=== PATIENT | male | born 1945 | race Caucasian/White ===

== ENCOUNTER 2018-03-02 19:20 | Inpatient (IN) | payer MEDICARE, BC ==
[2018-03-02] MEDS ORDERED: NITROGLYCERIN SL TABS 0.4 MG TAB SUBLINGUAL STA (19:44)
[2018-03-02] MEDS ORDERED: ASPIRIN 81 MG PO STA (19:44)
[2018-03-02] MEDS ORDERED: IPRATROPIUM-ALBUTEROL 3 ML NEB INHALATION STA ×2 (19:44→22:40)
--- NOTE | 2018-03-02 19:56 | ED ---
Chest Pain HPI - General Chief Complaint: Chest Pain Stated Complaint: SOB Time Seen by Provider: 03/02/18 19:37 Source: patient, RN notes reviewed Mode of arrival: wheelchair Limitations: physical limitation - History of Present Illness Initial Comments: This is a 72-year-old male was a smoker but no history of heart or lung disease who states she's been having shortness of breath or past 3 days with cough with yellow phlegm some chills also some retrosternal chest tightness and pressure he states is moderate in severity. He has exertional dyspnea. No other symptoms or findings reported. MD Complaint: chest pain, other - Related Data Home Medications Medication Instructions Recorded Confirmed No Known Home Medications [No 03/02/18 03/02/18 Known Home Medications] Allergies Allergy/AdvReac Type Severity Reaction Status Date / Time No Known Allergies Allergy Verified 03/02/18 19:43 Review of Systems ROS Statement: Those systems with pertinent positive or pertinent negative responses have been documented in the HPI. ROS Other: All systems not noted in ROS Statement are negative. EKG Findings - EKG Results: EKG: interpreted by TASHI, sinus rhythm (Sinus tachycardia rate 12. Interval 170 QRS duration 78 daily since QTC 324/422 possible left atrial enlargement) Past Medical History Past Medical History: No Reported History History of Any Multi-Drug Resistant Organisms: None Reported Additional Past Surgical History / Comment(s): buttock Past Psychological History: No Psychological Hx Reported Smoking Status: Current every day smoker Past Alcohol Use History: None Reported Past Drug Use History: None Reported General Exam - General Exam Comments Initial Comments: This is a well-developed well-nourished awake alert oriented 3 male Limitations: physical limitation General appearance: alert, anxious Head exam: Present: atraumatic, normocephalic, normal inspection Eye exam: Present: normal appearance, PERRL, EOMI. Absent: scleral icterus, conjunctival injection, periorbital swelling ENT exam: Present: normal exam, mucous membranes moist Neck exam: Present: normal inspection. Absent: tenderness, meningismus, lymphadenopathy Respiratory exam: Present: wheezes, decreased breath sounds. Absent: respiratory distress, rales, rhonchi, stridor Cardiovascular Exam: Present: regular rate, normal rhythm, normal heart sounds. Absent: systolic murmur, diastolic murmur, rubs, gallop, clicks GI/Abdominal exam: Present: soft, normal bowel sounds. Absent: distended, tenderness, guarding, rebound, rigid Extremities exam: Present: normal inspection, full ROM, normal capillary refill. Absent: tenderness, pedal edema, joint swelling, calf tenderness Back exam: Present: normal inspection Neurological exam: Present: alert, oriented X3, CN II-XII intact Psychiatric exam: Present: normal affect, normal mood Skin exam: Present: warm, dry, intact. Absent: rash Course Vital Signs 03/02/18 03/02/18 03/02/18 19:21 19:41 20:18 Temperature 99.0 F Pulse Rate 109 H 103 H Pulse Rate [ 99 [employer]der ] Respiratory 24 21 18 Rate Blood Pressure 165/72 160/91 O2 Sat by Pulse 92 L 94 L Oximetry 03/02/18 03/02/18 03/02/18 20:21 20:28 21:15 Temperature Pulse Rate 101 H 102 H 98 Pulse Rate [ Go[employer]der ] Respiratory 18 Rate Blood Pressure 142/71 O2 Sat by Pulse 95 Oximetry 03/02/18 03/02/18 03/02/18 22:34 22:57 23:07 Temperature Pulse Rate 84 96 90 Pulse Rate [ Go[employer] Herder ] Respiratory 17 18 18 Rate Blood Pressure 125/68 O2 Sat by Pulse 93 L Oximetry - Reevaluation(s) Reevaluation #1: 03/02/18 23:32 Patient was still wheezing somewhat he did require second updraft treatment. He still having some retrosternal chest discomfort. Chest Pain MDM - MDM I did review the imaging and report no acute findings. Patient will be admitted I did initially discuss case with Dr. Martinez however his group is not on city call I later talked to Dr. Marquez who is agreed to accept the patient. The patient's temperature is likely based on smoking prior to arrival. Critical Care Time Critical Care Time: Yes Critical Care Time: 31 minutes of critical care time which includes initial presentation with history physical labs x-rays. Several reevaluation patient responsive therapy. Discussion with the admitting physician admission orders and documentation the above. Patient does not have any prior EKGs are available at this time. Disposition Clinical Impression: Chest pain, Unstable angina pectoris, COPD with exacerbation Disposition: ADMITTED IP TO THIS [facility] Condition: Stable Referrals: None,Stated [Primary Care Provider] - 1-2 days
[2018-03-02 19:57] LABS: Basophils % (A) 1 %; Eosinophils # (A) 0.2 k/uL (0-0.7); Eosinophils % (A) 2 %; HCT 50.6 % (39.0-53.0); HGB 17.2 gm/dL (13.0-17.5); Lymphocytes # (A) 0.8 k/uL (1.0-4.8); Lymphocytes % (A) 10 %; MCH 31.1 pg (25.0-35.0); MCV 91.5 fL (80.0-100.0); Mean Platelet Volume 7.7; Monocytes # (A) 0.7 k/uL (0-1.0); Monocytes % (A) 9 %; Neutrophils # (A) 5.9 k/uL (1.3-7.7); Neutrophils % (A) 77 %; Platelet Count 177 k/uL (150-450); RBC 5.53 m/uL (4.30-5.90); RDW 13.9 % (11.5-15.5); WBC 7.7 k/uL (3.8-10.6)
[2018-03-02 20:05] LABS: INR 1.2 (<1.2); Partial Thromboplastin Time 22.8 sec (22.0-30.0); Prothrombin Time 11.2 sec (9.0-12.0)
[2018-03-02 20:10] LABS: ALT 26 U/L (21-72); AST 29 U/L (17-59); Albumin 4.7 g/dL (3.5-5.0); Alkaline Phosphatase 106 U/L (38-126); Anion Gap 17 mmol/L; Blood Urea Nitrogen 14 mg/dL (9-20); Calcium 9.7 mg/dL (8.4-10.2); Carbon Dioxide 27 mmol/L (22-30); Chloride 98 mmol/L (98-107); Glucose 116 mg/dL (74-99); Magnesium 1.9 mg/dL (1.6-2.3); Potassium 4.2 mmol/L (3.5-5.1); Sodium 142 mmol/L (137-145); Total Bilirubin 1.8 mg/dL (0.2-1.3); Total Protein 7.9 g/dL (6.3-8.2)
--- NOTE | 2018-03-02 20:46 | XR ---
EXAMINATION TYPE: XR chest 2V DATE OF EXAM: 03/02/2018 COMPARISON: NONE HISTORY: Short of breath and chest pain TECHNIQUE: Frontal and lateral views of the chest are obtained. FINDINGS: There is slight coarsening of interstitial pulmonary markings. There is slight blunting of right costophrenic angle. There is no heart failure. Heart size is normal. There is spurring in the thoracic spine. IMPRESSION: Mild pleural reaction or fluid at the right lung base. No heart failure. Mild pulmonary fibrosis.
[2018-03-02 20:51] LABS: Creatine Kinase 136 U/L (55-170)
[2018-03-02 21:04] LABS: Creatine Kinase MB 2.7 ng/mL (0.0-2.4); Troponin I <0.012 ng/mL (0.000-0.034)
[2018-03-02] MEDS ORDERED: HEPARIN SODIUM,PORCINE 5,000 UNIT/ML 1 ML VIAL IV ONE (23:35)
[2018-03-02] MEDS ORDERED: NITROGLYCERIN SL TABS 0.4 MG TAB SUBLINGUAL PRN (23:35)
[2018-03-02] MEDS ORDERED: methylPREDNISolone SOD SUCCI 125 MG/2 ML VIAL IV STA (23:38)
[2018-03-02] MEDS ORDERED: HEPARIN SODIUM,PORCINE/D5W PMX 25,000 UNIT in DEXTROSE/WATER 1 500ML.BAG IV SCH (23:45)
[2018-03-02] MEDS: SODIUM CHLORIDE 0.9% 1,000 ML IV SCH (23:58)
[2018-03-03] MEDS ORDERED: AZITHROMYCIN 500 MG TAB PO STA (00:05)
--- NOTE | 2018-03-03 00:17 | P.HPIM ---
History of Present Illness H&P Date: 03/03/18 Chief Complaint: Shortness of breath and cough chest pain The patient is a 72-year-old male with no significant past medical history other than for smoking who presents to the ER with chief complaint of shortness of breath and chest discomfort. Apparently the patient began having increasing shortness of breath worse with exertion over the last 3 days, with increasing trouble breathing, the patient describes it as feeling like he is being " waterboarded", also reports reductive cough of yellowish sputum during this time along with some associated chest pressure rated as a 7 out of 10 nonradiating midsternal feeling like someone is sitting on his chest. Patient also reports increasing lower extremity swelling, he denies any PND orthopnea, denies lightheadedness, but does report a headache and increasing head congestion. He denies any subjective fevers or chills. In the ER he was given breathing treatments, IV steroids and recommended for admission. Review of Systems All other 14 point systems negative except for HPI Past Medical History Past Medical History: No Reported History History of Any Multi-Drug Resistant Organisms: None Reported Additional Past Surgical History / Comment(s): buttock Past Psychological History: No Psychological Hx Reported Smoking Status: Current every day smoker Past Alcohol Use History: None Reported Past Drug Use History: None Reported Medications and Allergies Home Medications Medication Instructions Recorded Confirmed Type No Known Home Medications [No 03/02/18 03/02/18 History Known Home Medications] Allergies Allergy/AdvReac Type Severity Reaction Status Date / Time No Known Allergies Allergy Verified 03/02/18 19:43 Physical Exam Vitals: Vital Signs Temp Pulse Pulse Resp BP Pulse Ox 03/02/18 23:22 76 18 136/61 98 03/02/18 23:07 90 18 03/02/18 22:57 96 18 03/02/18 22:34 84 17 125/68 93 L 03/02/18 21:15 98 18 142/71 95 03/02/18 20:28 102 H 03/02/18 20:21 101 H 03/02/18 20:18 103 H 18 160/91 94 L 03/02/18 19:41 99 21 03/02/18 19:21 99.0 F 109 H 24 165/72 92 L Intake and Output 03/02/18 03/02/18 03/03/18 14:59 22:59 06:59 Other: Weight 86.183 kg Constitutional: Mild to moderate respiratory distress, conversant Eyes: Anicteric sclerae, moist conjunctiva, no lid-lag, PERRLA ENMT: NC/AT,Oropharynx clear, no erythema, exudates Neck:Supple, FROM, no masses, or JVD, No carotid bruits; No thyromegaly Lungs: Diffuse wheezes, Clear to percussion, pursed lip breathing, no accessory muscle use but speaking in incomplete sentences Cardiovascular: Heart regular in rate and rhythm, No murmurs, gallops, or rubs no peripheral edema Abdominal: Soft Nontender, nom distended, no guarding, no rebound or rigidity, Normoactive bowel sounds No hepatomegaly, No splenomegaly, No palpable mass No abdominal wall hernia noted Skin: Normal temperature, tone, texture, turgor, No induration No subcutaneous nodules, No rash, lesions, No ulcers Extremities:No digital cyanosis No clubbing, Pedal pulses intact and symmetrical Radial pulses intact and symmetrical Normal gait and station, No calf tenderness Psychiatric: Alert and oriented to person, place and time, Appropriate affect Intact judgement Neuro: Muscles Strength 5/5 in all 4 extremities, Sensation to light touch grossly present throughout, Cranial nerves II-XII grossly intact. No focal sensory deficits Results CBC & Chem 7: 03/02/18 19:35 03/02/18 19:35 Labs: Abnormal Lab Results - Last 24 Hours (Table) 03/02/18 03/02/18 03/02/18 Range/Units 19:35 19:35 19:35 Lymphocytes # 0.8 L (1.0-4.8) k/uL INR (<1.2) Glucose 116 H (74-99) mg/dL Total Bilirubin 1.8 H (0.2-1.3) mg/dL CK-MB (CK-2) 2.7 H* (0.0-2.4) ng/mL 03/02/18 Range/Units 19:35 Lymphocytes # (1.0-4.8) k/uL INR 1.2 H (<1.2) Glucose (74-99) mg/dL Total Bilirubin (0.2-1.3) mg/dL CK-MB (CK-2) (0.0-2.4) ng/mL Assessment and Plan (1) COPD with exacerbation Current Visit: Yes Status: Acute Code(s): J44.1 - CHRONIC OBSTRUCTIVE PULMONARY DISEASE W (ACUTE) EXACERBATION SNOMED Code(s): 420762480 (2) Chest pain Current Visit: Yes Status: Acute Code(s): R07.9 - CHEST PAIN, UNSPECIFIED SNOMED Code(s): 63092360 (3) Smoking Current Visit: Yes Status: Acute Code(s): F17.200 - NICOTINE DEPENDENCE, UNSPECIFIED, UNCOMPLICATED SNOMED Code(s): 57393679 Plan: The patient is admitted with acute COPD exacerbation anticipate a greater than 2 midnight stay, also present today with atypical chest pain possibly precipitated by his COPD exacerbation we'll need to cycle his troponins to rule out ACS his initial EKG was negative for any sedation acute ischemia. The patient was started on routine chest pain orders with aspirin and nitroglycerin and placed on heparin drip. For his COPD exacerbation is continued on IV steroids Solu-Medrol, Perforomist, scheduled and when necessary breathing treatments, azithromycin and Mucinex. We'll order echocardiogram, TSH and consult cardiology and pulmonology respectively for further recommendations. We 'll continue to follow the patient's clinical course
[2018-03-03] MEDS ORDERED: ACETAMINOPHEN TAB 325 MG TAB PO PRN (00:18)
[2018-03-03] MEDS: IPRATROPIUM-ALBUTEROL 3 ML NEB INHALATION SCH ×6 (01:05→20:06)
[2018-03-03 01:36] LABS: Creatine Kinase 117 U/L (55-170)
[2018-03-03 01:48] LABS: Troponin I <0.012 ng/mL (0.000-0.034)
[2018-03-03 01:52] LABS: Creatine Kinase MB 2.8 ng/mL (0.0-2.4)
[2018-03-03 03:37] LABS: Cholesterol 168 mg/dL (<200); HDL Cholesterol 44 mg/dL (40-60); LDL Cholesterol,Calculated 107 mg/dL (0-99); Triglycerides 85 mg/dL (<150)
[2018-03-03] MEDS: NITROGLYCERIN OINT 1 INCH/GM PACKET TOPICAL SCH ×2 (06:28→07:48)
[2018-03-03] MEDS: FORMOTEROL FUMARATE 20 MCG/2 ML NEBU INHALATION SCH ×2 (07:09→20:06)
[2018-03-03 08:39] LABS: Creatine Kinase 122 U/L (55-170)
[2018-03-03 08:52] LABS: Troponin I <0.012 ng/mL (0.000-0.034)
[2018-03-03] MEDS ORDERED: ASPIRIN 325 MG TAB PO SCH (09:00)
--- NOTE | 2018-03-03 11:04 | P.CRDCN ---
History of Present Illness History of present illness: Mr. Bowman is a pleasant 72-year-old male with no significant past medical history other than chronic tobacco dependence. He denies history of coronary artery disease, hypertension, dyslipidemia or COPD. Although he states he has never seen a doctor for any reason and doesn't follow with a PCP. He lives between [place] and [place] and is retired from [employer]. We have been asked to see him in consultation for complaints of chest pain and shortness of breath. He states approximately 3 days ago he started feeling a heavy sensation across his chest from shoulder to shoulder radiating into his back with shortness of breath, palpitations, productive cough and dizziness. His pain was constant with no specific aggravating or alleviating factors. The shortness of breath has been increasing with worsening cough. He is coughing up yellow/green mucous. He denies pnd or orthopnea. He also denies nausea, vomiting or diaphoresis. EKG reveals sinus mechanism with non-specific T wave flattening. No old for comparison. Chest xray mild pleural reaction or fluid in the right lung base, no heart failure and pulmonary fibrosis. Laboratory data reviewed, hemoglobin 17.2, platelets 177, sodium 142, potassium 4.2, creatinine 0.91, magnesium 1.9, cardiac enzymes negative 3, proBNP 154, TSH 2.68, LDL 107, HDL 44. He takes no daily medications. Review of Systems At the time of my exam: CONSTITUTIONAL: Denies fever. Denies chills. EYES: Denies blurred vision. Denies vision changes. Denies eye pain. EARS, NOSE, MOUTH & THROAT: Denies headache. Denies sore throat. Denies ear pain. CARDIOVASCULAR: Denies chest pain. Complains of shortness of breath. Denies orthopnea. Denies PND. Denies palpitations. RESPIRATORY: Complains of productive cough. GASTROINTESTINAL: Denies abdominal pain. Denies diarrhea. Denies constipation. Denies nausea. Denies vomiting. MUSCULOSKELETAL: Denies myalgias. INTEGUMENTARY: Denies pruitis. Denies rash. NEUROLOGIC: Denies numbness. Denies tingling. Denies weakness. PSYCHIATRIC: Denies anxiety. Denies depression. ENDOCRINE: Denies fatigue. Denies weight change. Denies polydipsia. Denies polyurina. GENITOURINARY: Denies burning, hematuria or urgency with micturation. HEMATOLOGIC: Denies history of anemia. Denies bleeding. Past Medical History Past Medical History: No Reported History History of Any Multi-Drug Resistant Organisms: None Reported Additional Past Surgical History / Comment(s): buttock Past Psychological History: No Psychological Hx Reported Smoking Status: Current every day smoker Past Alcohol Use History: None Reported Past Drug Use History: None Reported Medications and Allergies Home Medications Medication Instructions Recorded Confirmed Type No Known Home Medications [No 03/02/18 03/02/18 History Known Home Medications] Allergies Allergy/AdvReac Type Severity Reaction Status Date / Time No Known Allergies Allergy Verified 03/02/18 19:43 Physical Exam Vitals: Vital Signs Temp Pulse Pulse Resp BP Pulse Ox 03/03/18 07:27 90 03/03/18 07:21 90 03/03/18 07:09 92 03/03/18 05:00 85 22 124/73 98 03/03/18 04:00 92 20 122/62 100 03/03/18 03:28 87 03/03/18 03:19 90 03/03/18 03:00 84 22 122/69 98 03/03/18 02:00 90 20 127/79 98 03/03/18 01:00 101 H 20 125/89 99 03/03/18 00:29 97 19 128/62 99 03/02/18 23:22 76 18 136/61 98 03/02/18 23:07 90 18 03/02/18 22:57 96 18 03/02/18 22:34 84 17 125/68 93 L 03/02/18 21:15 98 18 142/71 95 03/02/18 20:28 102 H 03/02/18 20:21 101 H 03/02/18 20:18 103 H 18 160/91 94 L 03/02/18 19:41 99 21 03/02/18 19:21 99.0 F 109 H 24 165/72 92 L Intake and Output 03/02/18 03/03/18 03/03/18 22:59 06:59 14:59 Other: Weight 86.183 kg Blood pressure 136/80 heart rate 89 afebrile maintaining oxygen saturation on nasal cannula 3 L GENERAL: This is a 72-year-old male in no apparent distress at the time of my examination. HEENT: Head is atraumatic, normocephalic. Pupils are equal, round. Sclerae anicteric. Conjunctivae are clear. Mucous membranes of the mouth are moist. Neck is supple. There is no jugular venous distention. No carotid bruit is heard. LUNGS: Wheezing noted inspiratory and expiratory throughout. No rales or rhonchi. No chest wall tenderness is noted on palpation or with deep breathing. HEART: Regular rate and rhythm without murmurs, rubs or gallops. S1 and S2 heard. ABDOMEN: Soft, nontender. Bowel sounds are heard. No organomegaly noted. EXTREMITIES: No evidence of peripheral edema and no calf tenderness noted. VASCULAR: Radial and dorsalis pedis pulses palpated, no evidence of clubbing. Bilateral lower extremities purple discoloration with poor capillary refill to toes. NEUROLOGIC: Patient is awake, alert and oriented x3. Results 03/02/18 19:35 03/02/18 19:35 Cardiac Enzymes 03/02/18 03/02/18 03/03/18 Range/Units 19:35 19:35 01:04 AST 29 (17-59) U/L CK-MB (CK-2) 2.7 H* 2.8 H* (0.0-2.4) ng/mL Troponin I <0.012 <0.012 (0.000-0.034) ng/mL Coagulation 03/02/18 Range/Units 19:35 PT 11.2 (9.0-12.0) sec APTT 22.8 (22.0-30.0) sec Lipids 03/02/18 Range/Units 19:35 Triglycerides 85 (<150) mg/dL Cholesterol 168 (<200) mg/dL HDL Cholesterol 44 (40-60) mg/dL CBC 03/02/18 Range/Units 19:35 WBC 7.7 (3.8-10.6) k/uL RBC 5.53 (4.30-5.90) m/uL Hgb 17.2 (13.0-17.5) gm/dL Hct 50.6 (39.0-53.0) % Plt Count 177 (150-450) k/uL Comprehensive Metabolic Panel 03/02/18 Range/Units 19:35 Sodium 142 (137-145) mmol/L Potassium 4.2 (3.5-5.1) mmol/L Chloride 98 (98-107) mmol/L Carbon Dioxide 27 (22-30) mmol/L BUN 14 (9-20) mg/dL Creatinine 0.91 (0.66-1.25) mg/dL Glucose 116 H (74-99) mg/dL Calcium 9.7 (8.4-10.2) mg/dL AST 29 (17-59) U/L ALT 26 (21-72) U/L Alkaline Phosphatase 106 (38-126) U/L Total Protein 7.9 (6.3-8.2) g/dL Albumin 4.7 (3.5-5.0) g/dL Current Medications Generic Name Dose Route Start Last Admin Trade Name Freq PRN Reason Stop Dose Admin Acetaminophen 650 mg 03/03/18 00:18 Tylenol Tab PO Q6HR PRN Fever and/ or Pain Albuterol/Ipratropium 3 ml 03/03/18 00:00 03/03/18 07:09 Duoneb 0.5 Mg-3 Mg/3 Ml Soln INHALATION 3 ml RT-Q4H [facility] Administration Aspirin 81 mg 03/03/18 09:00 Aspirin PO DAILY [facility] Azithromycin 250 mg 03/04/18 09:00 Zithromax PO DAILY [facility] Formoterol Fumarate 20 mcg 03/03/18 08:00 03/03/18 07:09 Perforomist INHALATION 20 mcg RT-BID [facility] Administration Guaifenesin 1,200 mg 03/03/18 09:00 Mucinex PO Q12HR [facility] Heparin Sodium/Dextrose 25,000 500 mls @ 20.68 mls/hr 03/02/18 23:45 23:58 unit/ IV Solution IV 11.6 units/kg/hr .Q24H DESIREE 19.99 mls/hr Protocol Administration 12 UNITS/KG/HR Sodium Chloride 1,000 mls @ 20 mls/hr 03/02/18 23:45 03/02/18 23:58 Saline 0.9% IV 20 mls/hr .Q24H DESIREE Administration Methylprednisolone Sodium Succinate 60 mg 03/03/18 06:00 Solu-Medrol IV Q6HR [facility] Nicotine 1 patch 03/03/18 09:00 Habitrol 21mg/24hr Patch TRANSDERM DAILY [facility] Nitroglycerin 1 inch 03/03/18 00:00 03/03/18 07:48 Nitro-Bid Oint TOPICAL Not Given Q6HR [facility] Nitroglycerin 0.4 mg 03/02/18 23:35 Nitrostat SUBLINGUAL Q5M PRN Chest Pain Intake and Output 03/02/18 03/03/18 03/03/18 22:59 06:59 14:59 Other: Weight 86.183 kg 03/02/18 19:35 03/02/18 19:35 Assessment and Plan Assessment: ASSESSMENT 1. Chest pain, shortness of breath and productive cough. An acute coronary event has been ruled out with no EKG evidence of acute ischemia and negative cardiac enzymes. 2. Chronic nicotine dependence 3. Dyslipidemia PLAN Echocardiogram obtained, will be reviewed. Check d-dimer. Initiate on moderate intensity statin therapy for increased risk of cardiovascular disease. Atorvastatin 40 mg daily will be started today. Follow up liver function in 1 weeks. His symptoms are more related to pulmonary etiology with high probability for COPD. Pulmonary has been consulted. Once his respiratory status has improved we will do a stress test as an outpatient. Follow up with Dr. Beard in 2 weeks. Thank you kindly for this consultation. Nurse Practitioner note has been reviewed, I agree with a documented findings and plan of care. Patient was seen and examined.
--- NOTE | 2018-03-03 11:33 | P.CNPUL ---
History of Present Illness Consult date: 03/03/18 Reason for consult: dyspnea, COPD, hypoxemia, abnormal CXR/CT, other Chief complaint: Shortness of breath cutting the lawn History of present illness: Pulmonary consult dated 03/03/2018 72-year-old smoker who is been smoking since the age of 18, some 54 years at 1 pack a day of nonfiltered cigarettes who apparently was enticed are encouraged by his neighbor to come in to be evaluated for shortness of breath. He probably was cutting his lawn with a push lawnmower. He be patent became very short of breath and his neighbor's of the senior better get to the hospital. In addition, he was coughing and wheezing. He was coughing up yellow phlegm. He apparently had some chills and some retrosternal chest tightness and pressure. We are consulted for the possibility of COPD which she likely has. Cardiology was also consulted as well. The patient does not see a doctor on a regular basis. He has no known ALLERGIES. Takes no medications. The patient has been having shortness of breath on exertion for a couple years now. His been getting progressively worse. This episode was the most severe it ever been. Anyway, the chest x-ray shows primarily a COPD and maybe some interstitial changes consistent with pulmonary fibrosis. His N-terminal proBNP was normal. The chest x-ray my opinion almost look a little bit like fluid overload but I suspect not because of his normal N-terminal proBNP and no crackles on examination. This would also likely rule out pulmonary fibrosis. In the end, he'll need an outpatient visit with our nurse practitioner Dr. Bekah Crowley and pulmonary function testing. Review of Systems A 12 point review of system is positive for shortness of breath coughing wheezing chest tightness phlegm production. He apparently also some chest pressure or Past Medical History Past Medical History: No Reported History History of Any Multi-Drug Resistant Organisms: None Reported Additional Past Surgical History / Comment(s): buttock Past Psychological History: No Psychological Hx Reported Smoking Status: Current every day smoker Past Alcohol Use History: None Reported Past Drug Use History: None Reported Medications and Allergies Home Medications Medication Instructions Recorded Confirmed Type Aspirin 81 mg PO DAILY chew 03/03/18 Rx Atorvastatin [Lipitor] 40 mg PO DAILY #30 tab 03/03/18 Rx Allergies Allergy/AdvReac Type Severity Reaction Status Date / Time No Known Allergies Allergy Verified 03/02/18 19:43 Physical Exam Osteopathic Statement: *. No significant issues noted on an osteopathic structural exam other than those noted in the History and Physical/Consult. Vitals: Vital Signs Temp Pulse Pulse Pulse Resp BP BP 03/03/18 07:27 90 03/03/18 07:21 90 03/03/18 07:09 92 03/03/18 06:30 98.1 F 89 18 136/80 03/03/18 05:00 85 22 124/73 03/03/18 04:00 92 20 122/62 03/03/18 03:28 87 03/03/18 03:19 90 03/03/18 03:00 84 22 122/69 03/03/18 02:00 90 20 127/79 03/03/18 01:00 101 H 20 125/89 03/03/18 00:29 97 19 128/62 03/02/18 23:22 76 18 136/61 03/02/18 23:07 90 18 03/02/18 22:57 96 18 03/02/18 22:34 84 17 125/68 03/02/18 21:15 98 18 142/71 03/02/18 20:28 102 H 03/02/18 20:21 101 H 03/02/18 20:18 103 H 18 160/91 03/02/18 19:41 99 21 03/02/18 19:21 99.0 F 109 H 24 165/72 Pulse Ox 03/03/18 07:27 03/03/18 07:21 03/03/18 07:09 03/03/18 06:30 94 L 03/03/18 05:00 98 03/03/18 04:00 100 03/03/18 03:28 03/03/18 03:19 03/03/18 03:00 98 03/03/18 02:00 98 03/03/18 01:00 99 03/03/18 00:29 99 03/02/18 23:22 98 03/02/18 23:07 03/02/18 22:57 03/02/18 22:34 93 L 03/02/18 21:15 95 03/02/18 20:28 03/02/18 20:21 03/02/18 20:18 94 L 03/02/18 19:41 03/02/18 19:21 92 L Intake and Output 03/02/18 03/03/18 03/03/18 22:59 06:59 14:59 Other: Weight 86.183 kg 88.451 kg No acute distress, oriented 3. Nasal O2 in place. HEENT examination is grossly unremarkable. Mucous membranes are moist. No oral lesions. Neck supple. Full range of motion. No adenopathy thyromegaly or neck vein distention. Cardiovascular examination reveals regular rhythm rate. S1-S2 normal. No S3 or S4. No discernible murmur noted. Lungs reveal diffuse bilateral inspiratory and expiratory wheezes and rhonchi. Breath sounds are severely diminished. There is prolongation. No crackles are appreciated. Abdomen soft bowel sounds are heard. No masses or tenderness. Extremities are intact. No cyanosis clubbing or edema. Skin is without rash or lesion. Neurologic examination is brief but nonfocal. Results - Laboratory Findings CBC and BMP: 03/02/18 19:35 03/02/18 19:35 PT/INR, D-dimer PT 11.2 sec (9.0-12.0) 03/02/18 19:35 INR 1.2 (<1.2) H 03/02/18 19:35 D-Dimer 1.39 mg/L FEU (<0.60) H 03/03/18 07:57 Abnormal lab findings: Abnormal Labs 03/02/18 03/02/18 03/02/18 19:35 19:35 19:35 Lymphocytes # 0.8 L INR D-Dimer Glucose 116 H Total Bilirubin 1.8 H CK-MB (CK-2) 2.7 H* LDL Cholesterol, Calc 03/02/18 03/02/18 03/03/18 19:35 19:35 01:04 Lymphocytes # INR 1.2 H D-Dimer Glucose Total Bilirubin CK-MB (CK-2) 2.8 H* LDL Cholesterol, Calc 107 H 03/03/18 03/03/18 07:48 07:57 Lymphocytes # INR D-Dimer 1.39 H Glucose Total Bilirubin CK-MB (CK-2) 3.0 H* LDL Cholesterol, Calc - Diagnostic Findings Chest x-ray: image reviewed (Chest x-ray labs and medications are all reviewed.) Assessment and Plan Assessment: Assessment COPD exacerbation likely complicated by purulent tracheobronchitis History of significant heavy and ongoing tobacco use for 54 years at a pack a day of nonfiltered cigarettes Plan: Plan dated 03/03/2018 The patient will need updrafts in the form of DuoNeb 4 times a day and when necessary. In addition, the patient should be on Pulmicort 1 mg mixed with performance twice a day. Additionally, the patient should be on Solu-Medrol 60 mg every 6 and some pleural oral antibiotic. On discharge, the patient should go home on updraft machine with albuterol and Atrovent to be used 4 times a day. The patient should also go home on a combination long-acting beta agonist/ inhaled corticosteroid such as Advair Symbicort or Dulera. In addition, the patient should go home on a short course of antibiotics as well as a prednisone burst and taper beginning with 40 mg a day for 4 days and tapering by 10 mg every fourth day. He'll need follow-up with our nurse practitioner Dr. Bekah Crowley in the office for 6 minute walk distance and pulmonary function testing. Additional recommendations and suggestions are forthcoming. Prognosis is guarded. We did certified travel counselor the patient about the importance of smoking cessation. Time with Patient: Greater than 30
--- NOTE | 2018-03-03 12:03 | ECHOF ---
Referral Reason:SOA/chest pain MEASUREMENTS -------- HEIGHT: 185.4 cm WEIGHT: 86.2 kg BP: 124/73 RVIDd: 3.0 cm (< 3.3) IVSd: 1.0 cm (0.6 - 1.1) LVIDd: 3.8 cm (3.9 - 5.3) LVPWd: 1.0 cm (0.6 - 1.1) IVSs: 1.7 cm LVIDs: 2.5 cm LVPWs: 1.5 cm LA Diam: 3.5 cm (2.7 - 3.8) LAESV Index (A-L): 19.43 ml/m Ao Diam: 4.0 cm (2.0 - 3.7) AV Cusp: 2.2 cm (1.5 - 2.6) MV EXCURSION: 29.284 mm (> 18.000) MV EF SLOPE: 122 mm/s (70 - 150) EPSS: 0.8 cm MV E Korey: 0.96 m/s MV DecT: 199 ms MV A Korey: 0.99 m/s MV E/A Ratio: 0.97 FINDINGS -------- Sinus rhythm. This was a technically adequate study. The left ventricular size is normal. Left ventricular wall thickness is normal. Overall left vent ricular systolic function is normal with, an EF between 60 - 65 %. The right ventricle is normal in size. Normal LA size by volume 22+/-6 ml/m2. The right atrium is normal in size. There is mild aortic valve sclerosis. There is trace to mild mitral regurgitation. Trace tricuspid regurgitation present. Trace/mild (physiologic) pulmonic regurgitation. The aortic root is dilated measuring 4.0cm. Normal inferior vena cava with normal inspiratory collapse consistent with estimated right atrial pre ssure of 5 mmHg. There is no pericardial effusion. CONCLUSIONS -------- 1. Sinus rhythm. 2. This was a technically adequate study. 3. The left ventricular size is normal. 4. Left ventricular wall thickness is normal. 5. Overall left ventricular systolic function is normal with, an EF between 60 - 65 %. 6. The right ventricle is normal in size. 7. Normal LA size by volume 22+/-6 ml/m2. 8. The right atrium is normal in size. 9. There is mild aortic valve sclerosis. 10. There is trace to mild mitral regurgitation. 11. Trace tricuspid regurgitation present. 12. Trace/mild (physiologic) pulmonic regurgitation. 13. The aortic root is dilated measuring 4.0cm. 14. Normal inferior vena cava with normal inspiratory collapse consistent with estimated right atrial pressure of 5 mmHg. 15. There is no pericardial effusion. OUTSEWER: Henny Guerra RDCS
[2018-03-03] MEDS: methylPREDNISolone SOD SUCCI 125 MG/2 ML VIAL IV SCH ×4 (12:08→23:13)
[2018-03-03] MEDS: ATORVASTATIN 40 MG TAB PO SCH (12:11)
[2018-03-03] MEDS: NICOTINE 21MG/24HR PATCH TRANSDERM SCH (12:11)
[2018-03-03] MEDS: ASPIRIN 81 MG PO SCH (12:11)
[2018-03-03] MEDS: guaiFENesin 600 MG TABLET.ER PO SCH ×2 (12:11→20:08)
--- NOTE | 2018-03-03 16:22 | CT ---
CT CHEST FOR PULMONARY EMBOLISM. EXAMINATION TYPE: CT angio chest DATE OF EXAM: 03/03/2018 INDICATION: Shortness of breath and elevated D-dimer. CT DLP: 1084 mGycm, Automated exposure control for dose reduction was used. CONTRAST: Patient injected with 100ml mL of Isovue 370. COMPARISON: NONE TECHNIQUE: CT of the chest is performed on a spiral scan at 2 mm thick sections. Study is performed with intravenous contrast timed for evaluation for pulmonary embolism. This will limit additional po rtions of the evaluation. 3-D MIP images reconstructed by the technologist are reviewed on the compu ter in the coronal and sagittal planes. FINDINGS: No persistent filling defects are evident to suggest an acute pulmonary embolism. There is a 1.6 cm subcarinal lymph node present. A 1.0 cm right hilar lymph node is present. Shotty l ymphadenopathy is within the pretracheal space and superior mediastinum. The ascending aorta diameter at the level of the main pulmonary artery is 3.9 cm. The main pulmonary artery diameter at the bifurcation is 2.6 cm. Small pericardial effusion is present. There is a 1.3 cm peripheral right lung base mass. Series 12 image 131. Streak opacities in the upper right middle lobe. Mild peribronchial thickening is present centrally. Correlate for chronic bronchi tis. Limited CT section through the upper abdomen are unremarkable. IMPRESSIONS: 1. 1.3 cm posterior lateral right lung base mass enlarged mediastinal adenopathy discussed above. Cor relate for primary and metastatic neoplasm. 2. No acute pulmonary embolism.
[2018-03-03] MEDS: BUDESONIDE 1 MG/2 ML NEBU INHALATION SCH (20:06)
[2018-03-04] MEDS: IPRATROPIUM-ALBUTEROL 3 ML NEB INHALATION SCH ×7 (00:46→23:44)
[2018-03-04] MEDS: SODIUM CHLORIDE 0.9% 1,000 ML IV SCH ×2 (02:07→20:11)
[2018-03-04] MEDS: methylPREDNISolone SOD SUCCI 125 MG/2 ML VIAL IV SCH ×4 (05:06→23:39)
[2018-03-04] MEDS: BUDESONIDE 1 MG/2 ML NEBU INHALATION SCH ×2 (07:21→19:11)
[2018-03-04] MEDS: FORMOTEROL FUMARATE 20 MCG/2 ML NEBU INHALATION SCH ×2 (07:21→19:11)
[2018-03-04] MEDS: ATORVASTATIN 40 MG TAB PO SCH (08:05)
[2018-03-04] MEDS: AZITHROMYCIN 250 MG TAB PO SCH (08:05)
[2018-03-04] MEDS: NICOTINE 21MG/24HR PATCH TRANSDERM SCH (08:05)
[2018-03-04] MEDS: guaiFENesin 600 MG TABLET.ER PO SCH ×2 (08:05→20:12)
[2018-03-04] MEDS: ASPIRIN 81 MG PO SCH (09:28)
--- NOTE | 2018-03-04 10:24 | P.PN ---
Subjective Progress Note Date: 03/03/18 Principal diagnosis: SOB The patient is still having shortness of breath especially with ambulation. No chest pain. Objective - Vital Signs Vital signs: Vital Signs Temp 98.5 F 03/03/18 12:00 Pulse 88 03/03/18 12:00 Resp 18 03/03/18 12:00 BP 139/77 03/03/18 12:00 Pulse Ox 92 L 03/03/18 12:00 Intake & Output 03/02/18 03/03/18 03/03/18 18:59 06:59 18:59 Weight 88.451 kg - Exam Constitutional: No acute distress, conversant, pleasant Eyes:Anicteric sclerae, moist conjunctiva, no lid-lag, PERRLA, ENMT: Oropharynx clear, no erythema, exudates Neck: Supple, FROM, no masses, or JVD, No carotid bruits, No thyromegaly Lungs: Bilateral expiratory wheezes and rhonchi , Clear to percussion, Normal respiratory effort, no accessory muscle use Cardiovascular: Heart regular in rate and rhythm, No murmurs, gallops, or rubs, No peripheral edema Abdominal: Soft, Nontender, no guarding, rebound or rigidity, Normoactive bowel sounds, No hepatomegaly, No splenomegaly, No palpable mass Skin: Normal temperature, tone, texture, turgor, no induration, No subcutaneous nodules, No rash, lesions, No ulcers Extremities: No digital cyanosis, No clubbing, Pedal pulses intact and symmetrical, Radial pulses intact and symmetrical, No calf tenderness Psychiatric: Alert and oriented to person, place and time, appropriate affect, intact judgement Neuro: Muscles Strength 5/5 in all 4 extremities, Sensation to light touch grossly present throughout, Cranial nerves II-XII grossly intact, no focal sensory deficits - Labs CBC & Chem 7: 03/02/18 19:35 03/02/18 19:35 Labs: Abnormal Lab Results - Last 24 Hours (Table) 03/02/18 03/02/18 03/02/18 Range/Units 19:35 19:35 19:35 Lymphocytes # 0.8 L (1.0-4.8) k/uL INR (<1.2) D-Dimer (<0.60) mg/L FEU Glucose 116 H (74-99) mg/dL Total Bilirubin 1.8 H (0.2-1.3) mg/dL CK-MB (CK-2) 2.7 H* (0.0-2.4) ng/mL LDL Cholesterol, Calc (0-99) mg/dL 03/02/18 03/02/18 03/03/18 Range/Units 19:35 19:35 01:04 Lymphocytes # (1.0-4.8) k/uL INR 1.2 H (<1.2) D-Dimer (<0.60) mg/L FEU Glucose (74-99) mg/dL Total Bilirubin (0.2-1.3) mg/dL CK-MB (CK-2) 2.8 H* (0.0-2.4) ng/mL LDL Cholesterol, Calc 107 H (0-99) mg/dL 03/03/18 03/03/18 Range/Units 07:48 07:57 Lymphocytes # (1.0-4.8) k/uL INR (<1.2) D-Dimer 1.39 H (<0.60) mg/L FEU Glucose (74-99) mg/dL Total Bilirubin (0.2-1.3) mg/dL CK-MB (CK-2) 3.0 H* (0.0-2.4) ng/mL LDL Cholesterol, Calc (0-99) mg/dL Assessment and Plan Plan: Acute exacerbation of COPD, acute bronchitis Steroids, DuoNeb's and antibiotics Improving Started on Pulmicort and Perforomist by pulmonary Sinus tachycardia Likely secondary to treatment with albuterol as well as #1 Monitor Smoking Planning to quit DVT prophylaxis Ambulatory, low risk Anticipated discharge: 1-2 days Disposition: Home
--- NOTE | 2018-03-04 10:26 | P.PN ---
Subjective Principal diagnosis: SOB Still having shortness of breath and cough. Objective - Vital Signs Vital signs: Vital Signs Temp 98.9 F 03/04/18 04:27 Pulse 122 H 03/04/18 09:12 Resp 18 03/04/18 09:12 BP 140/62 03/04/18 04:27 Pulse Ox 95 03/04/18 07:21 Intake & Output 03/03/18 03/04/18 03/04/18 18:59 06:59 18:59 Intake Total 240 Balance 240 Intake: Oral 240 Other: Voiding Method Toilet Toilet # Voids 2 - Exam Constitutional: No acute distress, conversant, pleasant Eyes:Anicteric sclerae, moist conjunctiva, no lid-lag, PERRLA, ENMT: Oropharynx clear, no erythema, exudates Neck: Supple, FROM, no masses, or JVD, No carotid bruits, No thyromegaly Lungs: Bilateral expiratory wheezes and rhonchi , Clear to percussion, Normal respiratory effort, no accessory muscle use Cardiovascular: Heart regular in rate and rhythm, No murmurs, gallops, or rubs, No peripheral edema Abdominal: Soft, Nontender, no guarding, rebound or rigidity, Normoactive bowel sounds, No hepatomegaly, No splenomegaly, No palpable mass Skin: Normal temperature, tone, texture, turgor, no induration, No subcutaneous nodules, No rash, lesions, No ulcers Extremities: No digital cyanosis, No clubbing, Pedal pulses intact and symmetrical, Radial pulses intact and symmetrical, No calf tenderness Psychiatric: Alert and oriented to person, place and time, appropriate affect, intact judgement Neuro: Muscles Strength 5/5 in all 4 extremities, Sensation to light touch grossly present throughout, Cranial nerves II-XII grossly intact, no focal sensory deficits - Labs CBC & Chem 7: 03/02/18 19:35 03/02/18 19:35 Labs: Abnormal Lab Results - Last 24 Hours (Table) 03/03/18 Range/Units 07:57 D-Dimer 1.39 H (<0.60) mg/L FEU Assessment and Plan Plan: Acute exacerbation of COPD, acute bronchitis Steroids, DuoNeb's and antibiotics Improving Started on Pulmicort and Perforomist by pulmonary Sinus tachycardia Likely secondary to treatment with albuterol as well as #1 Monitor Newly found right lung base mass with mediastinal lymphadenopathy Found by computed tomography scan of the chest Pulmonary following Smoking Planning to quit DVT prophylaxis Ambulatory, low risk Anticipated discharge: 1-2 days Disposition: Home
--- NOTE | 2018-03-04 14:14 | P.PN ---
Subjective Progress Note Date: 03/04/18 Principal diagnosis: COPD exacerbation, right lower lobe pulmonary nodule 72-year-old smoker who is been smoking since the age of 18, some 54 years at 1 pack a day of nonfiltered cigarettes who apparently was enticed are encouraged by his neighbor to come in to be evaluated for shortness of breath. He probably was cutting his lawn with a push lawnmower. He be patent became very short of breath and his neighbor's of the senior better get to the hospital. In addition, he was coughing and wheezing. He was coughing up yellow phlegm. He apparently had some chills and some retrosternal chest tightness and pressure. We are consulted for the possibility of COPD which she likely has. Cardiology was also consulted as well. The patient does not see a doctor on a regular basis. He has no known ALLERGIES. Takes no medications. The patient has been having shortness of breath on exertion for a couple years now. His been getting progressively worse. This episode was the most severe it ever been. Anyway, the chest x-ray shows primarily a COPD and maybe some interstitial changes consistent with pulmonary fibrosis. His N-terminal proBNP was normal. The chest x-ray my opinion almost look a little bit like fluid overload but I suspect not because of his normal N-terminal proBNP and no crackles on examination. This would also likely rule out pulmonary fibrosis. In the end, he'll need an outpatient visit with our nurse practitioner Dr. Bekah Crowley and pulmonary function testing. On 03/04/2018 patient seen in follow-up on medical surgical floor. He remains dyspneic with any exertion, and will conversation. 6 on 2 L per nasal cannula was 95%, afebrile, vital signs are stable, lung sounds are positive for diffuse wheezes and rhonchi. CT angiogram showed 1.3 cm posterior lateral right lung base nodule and enlarged mediastinal adenopathy, but no evidence for acute pulmonary embolism. D-dimer was elevated at 1.39. Patient treated for acute COPD exacerbation, and he remains on oral Zithromax, inhaled bronchodilators, Mucinex, and IV Solu-Medrol. The findings of the CT angiogram been discussed with the patient, she will need further outpatient workup. He will need a baseline PFT once COPD is stable. He will then may need a PET scan, possibly a biopsy. Patient has related that she would not want any extensive surgical procedures or chemotherapy in case it turns out to be lung cancer. He states that his body cannot heal itself, he does not want to put her through any extensive use surgical intervention or chemotherapy. He does want the best medical treatment for his breathing problems related to COPD. Objective - Vital Signs Vital signs: Vital Signs Temp 98.9 F 03/04/18 04:27 Pulse 111 H 03/04/18 11:11 Resp 18 03/04/18 09:12 BP 140/62 03/04/18 04:27 Pulse Ox 95 03/04/18 07:21 Intake & Output 03/03/18 03/04/18 03/04/18 18:59 06:59 18:59 Intake Total 480 Balance 480 Intake: Oral 480 Other: Voiding Method Toilet Toilet # Voids 2 - Exam No acute distress, oriented 3. Nasal O2 in place. HEENT examination is grossly unremarkable. Mucous membranes are moist. No oral lesions. Neck supple. Full range of motion. No adenopathy thyromegaly or neck vein distention. Cardiovascular examination reveals regular rhythm rate. S1-S2 normal. No S3 or S4. No discernible murmur noted. Lungs reveal diffuse bilateral inspiratory and expiratory wheezes and rhonchi. Breath sounds are severely diminished. There is prolongation. No crackles are appreciated. Abdomen soft bowel sounds are heard. No masses or tenderness. Extremities are intact. No cyanosis clubbing or edema. Skin is without rash or lesion. Neurologic examination is brief but nonfocal. - Labs CBC & Chem 7: 03/02/18 19:35 03/02/18 19:35 Assessment and Plan Plan: Assessment: COPD exacerbation likely complicated by purulent tracheobronchitis Mediastinal adenopathy, and right upper lobe pulmonary nodule, rule out lung cancer. History of significant heavy and ongoing tobacco use for 54 years at a pack a day of nonfiltered cigarettes Plan: Continue current medical treatment, continue IV steroids, inhaled bronchodilators and antibiotics. We had a discussion with the patient in regards to the findings of the CT angios and the patient will need outpatient workup. He will need baseline PFTs once his COPD stable, and then we will proceed with PET scan, and probable biopsy of the right upper lobe nodule. However the patient relates that she does not want any extensive surgical intervention or chemotherapy even if case it turns out to be cancerous. He does want medical management of his COPD to help him breathe better. I performed a history & physical examination of the patient and discussed their management with my nurse practitioner, Eula Goff. I reviewed the nurse practitioner's note and agree with the documented findings and plan of care. Lung sounds are positive for diffuse wheezes and rhonchi. The findings and the impression was discussed with the patient. I attest to the documentation by the nurse practitioner. Time with Patient: Less than 30
[2018-03-04 15:49] VITALS: RESP 16
[2018-03-04] MEDS ORDERED: CALCIUM CARBONATE 500 MG CHEWABLE PO PRN (17:12)
[2018-03-05] MEDS: IPRATROPIUM-ALBUTEROL 3 ML NEB INHALATION SCH ×4 (03:32→15:10)
[2018-03-05] MEDS: methylPREDNISolone SOD SUCCI 125 MG/2 ML VIAL IV SCH ×2 (05:46→12:50)
[2018-03-05 06:39] VITALS: BP 118/54; TEMP 96.4
[2018-03-05] MEDS: BUDESONIDE 1 MG/2 ML NEBU INHALATION SCH (07:09)
[2018-03-05] MEDS: FORMOTEROL FUMARATE 20 MCG/2 ML NEBU INHALATION SCH (07:10)
[2018-03-05] MEDS: NICOTINE 21MG/24HR PATCH TRANSDERM SCH (08:10)
[2018-03-05] MEDS: ATORVASTATIN 40 MG TAB PO SCH (08:11)
[2018-03-05] MEDS: guaiFENesin 600 MG TABLET.ER PO SCH (08:11)
[2018-03-05] MEDS: AZITHROMYCIN 250 MG TAB PO SCH (08:11)
[2018-03-05] MEDS: ASPIRIN 81 MG PO SCH (08:11)
--- NOTE | 2018-03-05 11:29 | P.PN ---
Subjective Progress Note Date: 03/05/18 Principal diagnosis: Acute exacerbation of chronic obstructive pulmonary disease, right lower lobe pulmonary nodule 72-year-old smoker who is been smoking since the age of 18, some 54 years at 1 pack a day of nonfiltered cigarettes who apparently was enticed are encouraged by his neighbor to come in to be evaluated for shortness of breath. He probably was cutting his lawn with a push lawnmower. He be patent became very short of breath and his neighbor's of the senior better get to the hospital. In addition, he was coughing and wheezing. He was coughing up yellow phlegm. He apparently had some chills and some retrosternal chest tightness and pressure. We are consulted for the possibility of COPD which she likely has. Cardiology was also consulted as well. The patient does not see a doctor on a regular basis. He has no known ALLERGIES. Takes no medications. The patient has been having shortness of breath on exertion for a couple years now. His been getting progressively worse. This episode was the most severe it ever been. Anyway, the chest x-ray shows primarily a COPD and maybe some interstitial changes consistent with pulmonary fibrosis. His N-terminal proBNP was normal. The chest x-ray my opinion almost look a little bit like fluid overload but I suspect not because of his normal N-terminal proBNP and no crackles on examination. This would also likely rule out pulmonary fibrosis. In the end, he'll need an outpatient visit with our nurse practitioner Dr. Bekah Crowley and pulmonary function testing. On 03/04/2018 patient seen in follow-up on medical surgical floor. He remains dyspneic with any exertion, and will conversation. 6 on 2 L per nasal cannula was 95%, afebrile, vital signs are stable, lung sounds are positive for diffuse wheezes and rhonchi. CT angiogram showed 1.3 cm posterior lateral right lung base nodule and enlarged mediastinal adenopathy, but no evidence for acute pulmonary embolism. D-dimer was elevated at 1.39. Patient treated for acute COPD exacerbation, and he remains on oral Zithromax, inhaled bronchodilators, Mucinex, and IV Solu-Medrol. The findings of the CT angiogram been discussed with the patient, she will need further outpatient workup. He will need a baseline PFT once COPD is stable. He will then may need a PET scan, possibly a biopsy. Patient has related that she would not want any extensive surgical procedures or chemotherapy in case it turns out to be lung cancer. He states that his body cannot heal itself, he does not want to put her through any extensive use surgical intervention or chemotherapy. He does want the best medical treatment for his breathing problems related to COPD. The patient is seen today 03/05/2018 in follow-up on the regular medical floor. He is awake and alert in no acute distress. He's been up ambulating in the hallway. He is still requiring 3 L/m per nasal cannula to maintain O2 saturations in the 90s. He is on maximum medications with DuoNeb inhalations every 4 hours, Pulmicort and Perforomist inhalations twice a day, IV Solu- Medrol 60 mg every 6 hours, Mucinex. He is also on a NicoDerm patch. Objective - Vital Signs Vital signs: Vital Signs Temp 96.4 F L 03/05/18 05:00 Pulse 108 H 03/05/18 11:17 Resp 16 03/05/18 08:00 BP 118/54 03/05/18 05:00 Pulse Ox 96 03/05/18 07:12 Intake & Output 03/04/18 03/05/18 03/05/18 18:59 06:59 18:59 Intake Total 980 830 Balance 980 830 Weight 88.451 kg 88.451 kg Intake: Oral 980 830 Other: Voiding Method Toilet Toilet Toilet # Voids 2 2 - Exam GENERAL EXAM: Alert, active, comfortable in no apparent distress. HEAD: Normocephalic. EYES: Normal reaction of pupils, equal size. NOSE: Clear with pink turbinates. THROAT: No erythema or exudates. NECK: No masses, no JVD. CHEST: No chest wall deformity. LUNGS: Equal air entry with bilateral end expiratory wheeze. CVS: S1 and S2 normal with no audible murmur, regular rhythm. ABDOMEN: No hepatosplenomegaly, normal bowel sounds, no guarding or rigidity. SPINE: No scoliosis or deformity SKIN: No rashes CENTRAL NERVOUS SYSTEM: No focal deficits, tone is normal in all 4 extremities. EXTREMITIES: There is no peripheral edema. No clubbing, no cyanosis. Peripheral pulses are intact. - Labs CBC & Chem 7: 03/02/18 19:35 03/02/18 19:35 Assessment and Plan Assessment: Assessment: COPD exacerbation likely complicated by purulent tracheobronchitis Mediastinal adenopathy, and right upper lobe pulmonary nodule, rule out lung cancer. History of significant heavy and ongoing tobacco use for 54 years at a pack a day of nonfiltered cigarettes Plan: The patient was seen and evaluated by Dr. Emmanuel. The patient is quite anxious to go home. He is also quite adamant about not taking oxygen home with him. We are recommending he have home oxygen. He is to be on a prednisone burst and taper, Symbicort, albuterol. He is again educated regarding the importance of complete smoking cessation. He will follow-up in our office in 1-2 weeks' time. Once recovered we'll perform full pulmonary function testing to evaluate the severity of his COPD and make further recommendations for her maintenance medications. He'll also need a PET scan to evaluate the right upper lobe pulmonary nodule. The patient has verbalized he would not be interested in any chemotherapy or surgery. I, the cosigning physician, performed a history & physical examination of the patient. Lungs sounds have end expiratory wheeze. Maintaining good O2 saturations in the 90s on 3 L/m per nasal cannula. I discussed the assessment and plan of care with my nurse practitioner, Bekah Crowley. I attest to the above note as dictated by her.
[2018-03-05 15:25] VITALS: PULSE 113
== END 2018-03-05 18:17 | disposition home or self-care (01) | DRG 192 ==
LOC: EC 19:20 → OBSVTOIN 23:35 → 3OBS 23:35 → 6SEL 03-03 00:17 → 3OBS 03-03 06:08 → 5MS5E 03-03 20:54
PROVIDERS: ADMIT Family Medicine; ATTEND Family Medicine
DX: J44.0 Chronic obstructive pulmonary disease with (acute) lower respiratory infection (principal); J44.1 Chronic obstructive pulmonary disease with (acute) exacerbation; J84.10 Pulmonary fibrosis, unspecified; E87.70 Fluid overload, unspecified; J20.9 Acute bronchitis, unspecified; R09.02 Hypoxemia; R91.1 Solitary pulmonary nodule; R59.0 Localized enlarged lymph nodes; E78.5 Hyperlipidemia, unspecified; F17.210 Nicotine dependence, cigarettes, uncomplicated; Z71.6 Tobacco abuse counseling
CPT/HCPCS: 36415; 71046; 71275; 80053; 80061; 82550; 82553; 83735; 83880; 84443; 84484; 85025; 85379; 85610; 85730; 93005; 93306; 94640; 94760; 96365; 96366; 96375; 96376; 99291